=== PATIENT | female | born 1960 | race Two or more races ===

== ENCOUNTER 2023-03-04 15:01 | Emergency (ER) | payer OTHER ==
[~2023-03-04] VITALS: Ht 160 cm; Wt 72.6 kg
[2023-03-04] MEDS ORDERED: ONDANSETRON HCL/PF 4 MG/2 ML VIAL IVP ONE (16:00)
[2023-03-04] MEDS ORDERED: IV NS 0.9% 1,000 ML BAG IV ONE (16:00)
[2023-03-04] MEDS ORDERED: MORPHINE SULFATE INJ 2 MG/ML DISP.SYRIN IV ONE ×2 (16:00→18:00)
[2023-03-04] MEDS ORDERED: MORPHINE SULFATE INJ 4 MG/ML DISP.SYRIN ONE ×2 (16:11→17:57)
[2023-03-04] MEDS ORDERED: ONDANSETRON HCL/PF 4 MG/2 ML VIAL ONE (16:11)
[2023-03-04 16:36] LABS: CALCIUM, SERUM 9.4 mg/dL (8.5-10.1); CREATININE 0.6 mg/dL (0.6-1.3); POTASSIUM 4.3 mmol/L (3.5-5.1)
[2023-03-04 16:43] LABS: LACTIC ACID 1.3 mmol/L (0.4-2.0)
[2023-03-04 16:54] LABS: ALBUMIN 3.5 g/dL (3.4-5.0); BILIRUBIN,DIRECT 0.2 mg/dL (0.0-0.2); BILIRUBIN,TOTAL 1.4 mg/dL (0.2-1.0); TOTAL PROTEIN, SERUM 7.4 g/dL (6.4-8.2)
[2023-03-04] MEDS ORDERED: IOHEXOL-300 100 ML VIAL IV ONE (16:59)
[2023-03-04] MEDS ORDERED: IV NS 0.9% 250 ML IV ONE (16:59)
[2023-03-04 17:02] LABS: INR 0.97 (0.91-1.10); PARTIAL THROMBOPLASTIN TIME 25.2 SEC (24.3-34.3); PROTHROMBIN TIME 10.3 SECS (9.2-11.1)
[2023-03-04 17:28] LABS: BASOPHILS % (AUTO) 0.3 % (0.0-2.0); EOSINOPHILS # (AUTO) 0.2 K/uL (0.0-0.7); EOSINOPHILS % (AUTO) 1.9 % (0.0-6.0); HEMATOCRIT 41 % (33-45); HEMOGLOBIN 13.5 g/dL (11.5-14.8); LYMPHOCYTES # (AUTO) 3.4 K/uL (0.8-4.8); LYMPHOCYTES % (AUTO) 32.9 % (20.0-44.0); MEAN CORPUSCULAR HEMOGLOBIN 30 PG (26.0-33.0); MEAN CORPUSCULAR HGB CONC 33 g/dl (31.0-36.0); MEAN CORPUSCULAR VOLUME 91 fL (82-100); MONOCYTES # (AUTO) 0.8 K/uL (0.1-1.30); MONOCYTES % (AUTO) 7.4 % (2.0-12.0); NEUTROPHILS # (AUTO) 5.9 K/uL (1.8-8.9); NEUTROPHILS % (AUTO) 57.5 % (43.0-81.0); PLATELET COUNT (AUTO) 224 K/uL (150-450); RED BLOOD CELL COUNT(AUTO) 4.53 MIL/uL (4.0-5.2); RED CELL DISTRIBUTION WIDTH 13.8 % (11.5-15.0); WHITE BLOOD COUNT (AUTO) 10.3 K/uL (4.3-11.0)
[2023-03-04] MEDS ORDERED: HYDR-3980 PO (18:38)
[2023-03-04 18:51] VITALS: BP 121/84; TEMP 98.1; O2SAT 100
== END 2023-03-04 18:51 | disposition home or self-care (01) ==
LOC: ER 15:26
DX: G89.18 Other acute postprocedural pain (principal); R10.32 Left lower quadrant pain
CPT/HCPCS: 99285; 74177; 96374; 96361; 96375; 96376; 85025; 80048; 83605; 83690; 80076; 36415; 85730; J2270 ×2; J2405; J7030; J7050; Q9967